=== PATIENT | female | born 1940 | race Caucasian/White ===

== ENCOUNTER → 2017-03-01 | Outpatient (CLI) | payer OTHER ==
[2015-04-16 13:49] VITALS: BP 143/63
--- NOTE | 2017-03-01 16:18 | RAD ---
HISTORY: Kidney stones Study: KUB Comparison: None Findings: Evaluation of the abdomen demonstrates a normal bowel gas pattern. No pathological soft tissue mass or calcification can be observed. 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 IMPRESSION: 1. No evidence for acute abdominal pathology identified. Reported By:
== END ==
LOC: LAB 15:47
PROVIDERS: ATTEND Obstetrics & Gynecology Obstetrics
DX: N20.0 Calculus of kidney (principal)
CPT/HCPCS: 74000